=== PATIENT | male | born 1970 | race Caucasian/White ===

== ENCOUNTER → 2018-02-12 09:02 | Outpatient (CLI) | payer MEDICAID, SELFPAY ==
[2018-02-12 09:41] LABS: Anion Gap 10.5 mmol/L (3-11); BUN 24 mg/dL (7-18); CO2 27.5 mmol/L (21.0-32.0); CREATININE 1.13 mg/dL (0.70-1.30); Calcium 8.7 mg/dL (8.5-10.1); Chloride 104 mmol/L (98-107); Glucose 204 mg/dL (70-100); Sodium 142 mmol/L (136-145)
== END ==
PROVIDERS: PCP Nurse Practitioner Family; Visit Provider Nurse Practitioner Family
DX: R94.4 Abnormal results of kidney function studies (principal)
CPT/HCPCS: 36415; 80048

== ENCOUNTER 2019-02-17 10:45 | Outpatient (REF) | payer MEDICAID, SELFPAY ==
[2019-02-17 13:12] LABS: Microalb ug/mg Crea 9.7 ug/mg Cr
== END 2019-02-17 11:05 ==
LOC: LBN 10:45
PROVIDERS: PCP Nurse Practitioner Family; Visit Provider Nurse Practitioner Family
DX: E11.9 Type 2 diabetes mellitus without complications (principal)
CPT/HCPCS: 82043; 82570

== ENCOUNTER 2019-03-17 07:35 | Outpatient (CLI) | payer MEDICAID, SELFPAY ==
[2019-03-17 08:16] LABS: Hemoglobin A1C 8.5 % (4.5-6.2)
[2019-03-17 10:36] LABS: ALT 46 U/L (16-63); AST 20 U/L (15-37); Alkaline Phosphatase 74 U/L (46-116); Anion Gap 9.1 mmol/L (3-11); BUN 16 mg/dL (7-18); Bilirubin, Total 0.8 mg/dL (0.2-1.0); CO2 26.9 mmol/L (21.0-32.0); CREATININE 0.98 mg/dL (0.70-1.30); Calculated LDL 111 mg/dL; Chloride 105 mmol/L (98-107); Cholesterol 184 mg/dL (50-200); Glucose 151 mg/dL (70-100); HDL Cholesterol 48 mg/dL (40-60); Potassium 3.9 mmol/L (3.5-5.1); Sodium 141 mmol/L (136-145); Total Protein 6.7 g/dL (6.4-8.2); Triglyceride 128 mg/dL (30-150)
== END 2019-03-17 07:55 ==
PROVIDERS: PCP Nurse Practitioner Family; Visit Provider Nurse Practitioner Family
DX: I10 Essential (primary) hypertension (principal); E78.5 Hyperlipidemia, unspecified; E11.9 Type 2 diabetes mellitus without complications
CPT/HCPCS: 36415; 80053; 80061; 83036

== ENCOUNTER 2019-08-02 05:03 | Emergency (ER) | payer MEDICAID, SELFPAY ==
[2019-08-02 05:06] VITALS: BP 132/100; PULSE 87; RESP 20; TEMP 36.8; O2SAT 100
--- NOTE | 2019-08-02 05:10 | ED.GENADUL_ITS ---
Discharge Plan Disposition Patient Disposition: HOME Condition: Good Discharge Details Chief Complaint: Nausea/Vomit/Diar Clinical Impression: Viral syndrome, Diarrhea, Dehydration Primary Care Provider: Estefani Graham ED Provider: Toñito Murillo Meds and New Rx's Prescriptions: Continued (DME) lancets [FreeStyle Lancets] 1 EACH misc 1 ea Miscellaneous TID RF: 0 aspirin 81 MG tablet,delayed release (DR/EC) 81 mg PO DAILY RF: 0 (DME) FreeStyle Lite Strips 1 EACH strip 1 ea Miscellaneous TID Qty: 100 RF: 3 glyburide 5 mg tablet 5 mg PO DAILY Qty: 90 RF: 3 lisinopril 10 mg tablet 10 mg PO DAILY Qty: 90 RF: 3 metformin 500 mg tablet extended release 24 hr 1,000 mg PO DAILY Qty: 180 RF: 3 trazodone 50 mg tablet 50 - 100 mg PO HS PRN (Reason: insomnia) Qty: 180 RF: 3 Discharge Instructions Instructions: Dehydration (ED), Acute Diarrhea (ED) Additional Instructions: Try to get some rest. Increase fluid intake to prevent dehydration. [place] diet for the next few days. Follow-up with primary care next week if not better. Return to the ED if you develop bloody diarrhea, abdominal pain, persistent vomiting, high fevers, chest pain, shortness of breath. Stand Alone Forms: Work Release Referrals: Estefani Graham, [facility] [Primary Care Provider] - Medical Decision Making Suspect viral illness with some dehydration given the amount of diarrhea he is describing. It is described as nonbloody. He has a benign abdomen. Cough and congestion is present but he has no shortness of breath or chest pain. Lungs are clear. Saturations are normal. Think he probably just needs some IV fluids and will probably have the weakness and lightheadedness is feeling resolve. Does not sound like true influenza as it was not sudden in onset but more insidious. Will check basic labs. Fingerstick was 199. Laboratory studies look okay. White count is normal. Hemoglobin is normal. Chemistries are good. Glucose confirmed at 193. Liver function normal. Lipase just minimally elevated. He is feeling better with the 2 L of LR. I feel he is safe for discharge home. He needs to increase fluid intake to match his fluid output with his diarrhea. [place] diet. Follow-up with primary care next week if not better. Return to ED for bloody diarrhea, abdominal pain, persistent vomiting, high fever, chest pain, other concerns. Lab Data Lab results reviewed: Yes I reviewed the patient's lab results. HPI General Mode of arrival: ambulatory . Date/Time Provider Initiated Documentation: 08/02/19 05:07 . Limitations to Documentation: no limitations . Information obtained by: patient, RN notes reviewed and old records reviewed . HPI Narrative: Patient presents to ED with chief complaint of weakness and fatigue. Patient reports that 1 week ago he had about 24 hours of severe nausea, vomiting and diarrhea. Following day he felt fine. Over the weekend he started to feel ill again and progressively felt worse with aches, sweats, weakness. He has had some congestion and cough but no chest pain or shortness of breath. Continues to have diarrhea on a regular basis described as watery. Some nausea and dry heaves but not a persistent thing. Able to eat and drink to some degree though seems to trigger diarrhea. Has been trying to go to work but has been unable to because he feels so unwell. Presents this morning as he does not seem to be getting any better. Related Data Home Medications Medication Instructions Recorded Confirmed lancets [FreeStyle Lancets] ea 06/30/16 08/02/19 aspirin 81 mg PO DAILY tab 09/24/16 08/02/19 FreeStyle Lite Strips #100 strip 02/14/18 08/02/19 glyburide 5 mg tablet 5 mg PO DAILY #90 tab-cap 06/07/19 08/02/19 lisinopril 10 mg tablet 10 mg PO DAILY #90 tab-cap 06/07/19 08/02/19 metformin 500 mg tablet,extended 1,000 mg PO DAILY #180 tab-cap 06/07/19 08/02/19 release 24 hr trazodone 50 mg tablet 50 - 100 mg PO HS PRN #180 tab 06/07/19 08/02/19 Previous Rx's Medication Instructions Recorded FreeStyle Lite Strips #100 strip 02/14/18 glyburide 5 mg tablet 5 mg PO DAILY #90 tab-cap 06/07/19 lisinopril 10 mg tablet 10 mg PO DAILY #90 tab-cap 06/07/19 metformin 500 mg tablet,extended 1,000 mg PO DAILY #180 tab-cap 12/04/19 release 24 hr trazodone 50 mg tablet 50 - 100 mg PO HS PRN #180 tab 06/07/19 Allergies Allergy/AdvReac Type Severity Reaction Status Date / Time venlafaxine HCl Allergy Unknown Edema on Unverified 08/02/19 05:08 [From Effexor] Face General Stated Complaint: Nausea/Vomit/Diar MAYKEL: 3 Review of Systems Narrative: As documented in HPI otherwise negative as below. Const: sweats and weakness; no fever, chills Resp: cough; no SOB, pleuritic pain CV: no CP, edema, syncope GI: nausea, diarrhea; no abdominal pain/vomiting Neuro: no headache, numbness, focal weakness, confusion PFSH Medical History Adult BMI > 30 (Chronic) Alcohol use disorder (Chronic) Anxiety (Inactive) Depression (Inactive) Essential hypertension (Chronic 05/10/17) Hepatic steatosis (Chronic) Hypertriglyceridemia (Chronic) Insomnia Opioid use disorder (Chronic) Opiates (heroin & Rx); Methadone MAT until 09/2015; Suboxone MAT until ?? 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 Elevated blood pressure. Otherwise normal vitals and room air pulse ox. Const: WDWN male in NAD. HEENT: NC/AT. Normal facial exam. Dry mucous membranes. Eyes: Normal conjunctiva and sclera. Neck: Supple. Trachea midline. Lungs: Normal respiratory effort. Lungs are clear. Cor: RRR without murmur/gallop. Good radial pulses. GI: Soft. NT/ND. No guarding or rebound. Neuro: A+O x 3. Normal speech, mentation, gait. Cranial nerves II - XII grossly intact. No gross motor or sensory deficit. Ext: No C/C/E. Skin: Warm and dry without rash. Course Vital Signs Vital signs: Vital Signs Temperature 98.2 F 08/02/19 05:06 Pulse 87 08/02/19 05:06 Respiratory Rate 08/02/19 05:06 Blood Pressure 132/100 H 08/02/19 05:06 Pulse Oximetry 100 08/02/19 05:06 Temperature 98.2 F 08/02/19 05:06 Temperature Source Temporal Artery Scan 08/02/19 05:06 Pulse 87 08/02/19 05:06 Respiratory Rate 08/02/19 05:06 Blood Pressure 132/100 H 08/02/19 05:06 Blood Pressure Position Sitting 08/02/19 05:06 Pulse Oximetry 100 08/02/19 05:06 Oxygen Delivery Method Room Air 08/02/19 05:06 Oxygen Flow Rate 0 08/02/19 05:06 Pain Level 6 08/02/19 05:06
[2019-08-02] MEDS: Lactated Ringers 2,000 ML 1000 ML IV (05:39)
[2019-08-02] MEDS: Normal Saline Flush 10 ML SYR IVP (05:39)
[2019-08-02 05:40] LABS: Abs Immature Grans 0.02 k/cumm (0.0-0.09); Absolute Basophil Count 0.05 k/cumm (0.0-0.2); Absolute Eosinophil Count 0.15 k/cumm (0.0-0.7); Absolute Lymphocyte Count 1.16 k/cumm (1.2-3.4); Absolute Monocyte Count 0.71 k/cumm (0.11-0.7); Absolute Neutrophil Count 3.23 k/cumm (1.2-6.7); Basophils % 0.9; Eosinophils % 2.8; HCT 44.9 % (40.0-50.0); HGB 16.1 g/dL (13.5-17.5); Immature Grans % 0.4 %; Lymphocytes % 21.8; Mean Corp. HGB Concentration 35.9 g/dL (32.0-36.0); Mean Corpuscular Hemoglobin 30.1 pg (27.0-33.0); Mean Corpuscular Volume 84.1 fL (80-95); Mean Platelet Volume 10.2 fL (8.0-11.0); Monocytes % 13.3; Neutrophils % 60.8; Platelet Count 148 x1000/uL (130-400); RBC 5.34 m/cumm (4.50-6.00); RBC Distribution Width 12.3 % (11.8-14.1); White Blood Cell Count 5.32 k/cumm (4.4-10.8)
[2019-08-02 05:54] LABS: ALT 37 U/L (16-63); AST 16 U/L (15-37); Alkaline Phosphatase 77 U/L (46-116); Anion Gap 9.4 mmol/L (3-11); BUN 19 mg/dL (7-18); Bilirubin, Total 0.4 mg/dL (0.2-1.0); CO2 27.6 mmol/L (21.0-32.0); CREATININE 1.09 mg/dL (0.70-1.30); Calcium 8.5 mg/dL (8.5-10.1); Chloride 106 mmol/L (98-107); Glucose 193 mg/dL (74-106); Lipase 412 U/L (73-393); Potassium 3.9 mmol/L (3.5-5.1); Sodium 143 mmol/L (136-145); Total Protein 7.1 g/dL (6.4-8.2)
[2019-08-02 07:05] VITALS: BP 132/100; PULSE 87; RESP 20; TEMP 36.8; O2SAT 100
== END 2019-08-02 07:06 | disposition home or self-care (01) ==
PROVIDERS: Emergency Provider Emergency Medicine; PCP Nurse Practitioner Family
DX: B34.9 Viral infection, unspecified (principal); R19.7 Diarrhea, unspecified; E86.0 Dehydration; I10 Essential (primary) hypertension; E11.9 Type 2 diabetes mellitus without complications; Z79.84 Long term (current) use of oral hypoglycemic drugs
CPT/HCPCS: 36416; 80053; 82962; 83690; 96360; 99284; 85025; 99283

== ENCOUNTER 2020-01-22 08:00 | Day surgery (SDC) | payer MEDICAID, SELFPAY ==
--- NOTE | 2020-01-22 06:52 | W.PREOPHP ---
Date of service: 01/22/20 Time of Service: 09:30 Assessment and Plan Assessment and plan (1) Encounter for colorectal cancer screening: Status: Acute Assessment and plan: A\\ 49 year old gentleman seen in the office for his first screening colonoscopy. He has a history of chronic loose stools in the a.m. No abdominal pain melena or hematochezia. No family history of Crohn's or ulcerative colitis. No family history of colon cancer. P\\ Colonoscopy under sedation Risks, benefits and complications have been reviewed. Complications include but are not limited to bleeding, pain, perforation, missed small lesion/polyp, sore throat, aspiration and adverse reaction to the medications. Questions were entertained and answered to their satisfaction and they wished to proceed. No guarantees were given or implied. History of Present Illness Narrative: Mr. Ervin is a [id number] gentleman with a history of diabetes and hypertension who is here today to discuss a screening colonoscopy. This will be his first colonoscopy. He has no family history of colon cancer that he is aware of. He chronically has loose stools every morning. States normally he has 3-4 loose stools upon waking up and then nothing for the rest of the day. He has not noted any worsening of symptoms with different foods. He does not have any associated melena or hematochezia or abdominal pain. There is no family history of Crohn's or ulcerative colitis. He does not have any weight loss. He denies any cardiac history or history of heart attack and strokes. He does chew tobacco about a can a day. He also drinks 2-3 beers a day. He does not have a history of sleep apnea. He is able to walk up a flight of stairs without any difficulty. He does not have a chronic cough. And has no history of obstructive sleep apnea Review of Systems Cardiovascular Cardiovascular: Denies chest pain, Denies chest pain at rest, Denies irregular heart rhythm, Denies dyspnea and Denies dyspnea on exertion Respiratory Respiratory: Reports cough, Denies dyspnea and Denies dyspnea on exertion Gastrointestinal Gastrointestinal: Reports as per HPI Genitourinary Genitourinary: Denies dysuria, Reports urinary incontinence and Denies urinary urgency Endocrine Endocrine: Reports system reviewed and no additional complaints, except as documented Hematologic/Lymphatic Hematologic/Lymphatic: Denies easy bruising and Denies lymphadenopathy [facility] Medical History Adult BMI > 30 (Chronic) Alcohol use disorder (Chronic) Anxiety (Inactive) Depression (Inactive) Essential hypertension (Chronic 05/10/17) Hepatic steatosis (Chronic) Hypertriglyceridemia (Chronic) Insomnia Opioid use disorder (Chronic) Opiates (heroin & Rx); Methadone MAT until 09/2015; Suboxone MAT until ?? Other and unspecified hyperlipidemia (Chronic) Declines statins Tobacco use disorder (Chronic) Chewing tobacco Type 2 diabetes mellitus, without long-term current use of insulin (Chronic) Declines statins Family History Mother Hyperlipidemia Father No problems noted. Sister No problems noted. Sister No problems noted. Brother No problems noted. 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) Pets and animals: Yes Pets and animals: cat(s) Sexually active: Yes Current gender identity: male What is your relationship status?: living with partner Panel score (0-1 are the most socially isolated patients): 1 What type of physical activity do you participate in: none Seatbelt use: always Do you feel safe at home: Yes Do you feel safe in your relationship?: Yes Meds Home Medications and Allergies Home Medications Medication Instructions Recorded Confirmed Type lancets [FreeStyle Lancets] ea 06/30/16 12/29/19 History aspirin 81 mg PO DAILY tab 09/24/16 01/22/20 History glyburide 5 mg tablet 5 mg PO DAILY #90 tab-cap 06/07/19 01/22/20 Rx lisinopril 10 mg tablet 10 mg PO DAILY #90 tab-cap 06/07/19 01/22/20 Rx trazodone 50 mg tablet 50 - 100 mg PO HS PRN #180 tab 06/07/19 01/22/20 Rx metformin 500 mg tablet,extended 500 mg PO DAILY #180 tab-cap 08/17/19 01/22/20 Rx release 24 hr blood sugar diagnostic #200 each 01/17/20 Rx Allergies Allergy/AdvReac Type Severity Reaction Status Date / Time venlafaxine HCl Allergy Unknown Edema on Verified 01/22/20 08:14 [From Effexor] Face Exam Const General: healthy appearing and comfortable Resp Effort & Inspection: normal respiratory effort Auscultation: clear to auscultation bilaterally Cardio Rate: regular rate Rhythm: regular rhythm Heart Sounds: no click, no gallops and no murmurs
--- NOTE | 2020-01-22 06:54 | W.COLOREPORT ---
Date of service: 01/22/20 Time of Service: 09:51 Colonoscopy Report Date of procedure: 01/22/20 Pre-op diagnosis general: Colon Cancer screening Post-op diagnosis procedure note: other (polyps) Procedure: Colonoscopy with polypectomy Surgeon: Leatha Kathleen Anesthesia proc note operative: other (General/ ASA 3/Shena De Jesus CRNA ) Estimated blood loss (mL): 3 Pathology: other (Ascending colon polyp and transverse colon polyp) Complications: None Disposition: same day Indications: 49 year old gentleman seen in the office for his first screening colonoscopy. He has a history of chronic loose stools in the a.m. No abdominal pain melena or hematochezia. No family history of Crohn's or ulcerative colitis. No family history of colon cancer. Risks, benefits and complications have been reviewed. Complications include but are not limited to bleeding, pain, perforation, missed small lesion/polyp, sore throat, aspiration and adverse reaction to the medications. Questions were entertained and answered to their satisfaction and they wished to proceed. No guarantees were given or implied. Prep: Miralax/Dulcolax Procedure Start Time: :51 Procedure End Time: 10:23 Retraction Time: 26 min Findings: One sessile polyp in the proximal ascending colon and one Transverse colon polyp Procedure Description: After informed consent was obtained the patient was taken to the procedure room and placed in a left decubitous position. Monitors were applied and a time out was done. The patients name, date of , procedure, allergies to medications and metal in their body was reviewed. The patient was then sedated. Once sedated and comfortable a rectal exam was done. External exam was normal. Internal exam revealed a normal sphincter tone and no palpable masses. The prostate felt smooth. The scope was then introduced and retro-flexed. No internal hemorrhoids, masses or polyps were identified on retro-flexion. The scope was then advanced to the cecum without difficulty. The ileocecal valve and appendiceal orifice were identified. The prep was adequate. The scope was then slowly retracted over 26 minutes back into the rectum. Polyps were removed with cold forceps in the proximal ascending colon and in the transveerse colon. There were no diverticula noted. The scope was removed and the patient was woken up and taken back to Same day surgery in stable condition. The patient tolerated the procedure well and there were no immediate complications. Follow up: The patient should follow up in 3-5 years unless they develop changes in bowel habits or other new gastrointestinal complaints.
--- NOTE | 2020-01-22 06:56 | W.PM.DSUDISC ---
Discharge Plan Disposition Patient Disposition: HOME Condition: Good Discharge Details Reason For Visit: colon cancer screening Attending Provider: Leatha Kathleen Primary Care Provider: Estefani Graham Home Meds and New Rx's Prescriptions: Continued metformin 500 mg tablet extended release 24 hr 500 mg PO DAILY Qty: 180 RF: 3 (DME) lancets [FreeStyle Lancets] 1 EACH misc 1 ea Miscellaneous TID RF: 0 aspirin 81 MG tablet,delayed release (DR/EC) 81 mg PO DAILY RF: 0 glyburide 5 mg tablet 5 mg PO DAILY Qty: 90 RF: 3 lisinopril 10 mg tablet 10 mg PO DAILY Qty: 90 RF: 3 trazodone 50 mg tablet 50 - 100 mg PO HS PRN (Reason: insomnia) Qty: 180 RF: 3 (DME) Blood Glucose Test Strip See Rx Instructions .ROUTE .MEDSUPPLY Qty: 200 RF: 3 Discharge Instructions Instructions: Colorectal Polyps (GEN) Additional Instructions: Findings: 2 polyps Follow up: 3-5 years Please call if you develop: fevers >101.5 Nausea or Vomiting Abdominal pain that is not transient DAY SURGERY UNIT POST ENDOSCOPY INSTRUCTIONS 1. Because there will be medication in your system for the next 24 hours, you may feel a little sleepy. Your coordination will be affected. Therefore: a. Do not drive or operate dangerous equipment for 24 hours. b. Do not drink alcohol beverages for 24 hours (not even beer). c. Plan to go home and rest for the day. 2. Generally there are no restrictions on your activity after a day or so has gone by, but you may feel a bit fatigued for a few days. 3 After you arrive home you may have a light meal and return to a normal diet as you can tolerate it without feeling sick to your stomach. 4. After surgery, you may feel pain or discomfort. This should be only transient, but if it persists please contact your doctor. 5. If there are any questions regarding the findings of your procedure, please feel free to contact your doctor. 6. If you are unable to contact your doctor with a problem, contact the hospital at [phone]. 7. Continue all your regular medications unless directed otherwise. I understand the above instructions and have no questions. Signature of Patient or Responsible Adult Escort Date/Time Name of Responsible Adult Escort Signature of Nurse Date/Time Activity:: Activity as Tolerated Diet:: As Tolerated Discharge Orders Discharge Orders: Discharge Order (Routine); Ordered 01/22/20 Ordered By: Leatha Kathleen DS: Diagnosis Discharge Diagnosis (1) Encounter for colorectal cancer screening: Status: Acute
[2020-01-22 08:05] VITALS: BP 136/80; PULSE 66; RESP 16; TEMP 36.6; O2SAT 97
[2020-01-22] MEDS: Lactated Ringers 1,000 ML 80 ML IV (08:38)
--- NOTE | 2020-01-22 10:01 | BOWEL_PTH ---
PATIENT: Bowen Ervin LOC: [facility] U#:[id number] AGE/SX: 49/M ROOM: RE01/22/[address]: Leatha Kathleen MD : 1970 BED: DIS: 01/22/2020 SPEC #: [id number] RECD: 01/22/20 12:05 STATUS: MARISSA REQ #: [id number] GAUTAM: 01/22/20 10:[address]: Leatha Kathleen DEPT: Surgical Specimen RECD BY: Genevieve Buchanan ENTERED: 01/22/20 12:06 SP TYPE: Bowel OTHR DR: Estefani Graham APRN Tissues: 1 - BIOPSY BOWEL 2 - BIOPSY BOWEL Procedures: GROSS AND MICRO LEVEL 4 Comments: [id number]
[2020-01-22 10:50] VITALS: BP 130/83; PULSE 59; RESP 16; TEMP 36; O2SAT 99
== END 2020-01-22 11:20 | disposition home or self-care (01) ==
LOC: SUR 08:01
PROVIDERS: PCP Nurse Practitioner Family; Visit Provider Surgery
PROC: 0DJD8ZZ Inspection of Lower Intestinal Tract, Via Natural or Artificial Opening Endoscopic (ICD-10-PCS; CPT 45378; principal; 2020-01-22 09:30)
DX: Z12.11 Encounter for screening for malignant neoplasm of colon (principal); D12.2 Benign neoplasm of ascending colon; D12.3 Benign neoplasm of transverse colon; I10 Essential (primary) hypertension; E11.9 Type 2 diabetes mellitus without complications
CPT/HCPCS: 45380; 88305; NC; J2001; J2704

== ENCOUNTER 2020-02-22 20:54 | Outpatient (REF) | payer MEDICAID, SELFPAY ==
[2020-02-22 18:50] LABS: COMMENT (LAB VIEW ONLY) 206.35 mg/dL; Microalb ug/mg Crea 6.5 ug/mg Cr
== END 2020-02-22 21:14 ==
LOC: LBN 20:54
PROVIDERS: PCP Nurse Practitioner Family; Visit Provider Nurse Practitioner Family
DX: E11.9 Type 2 diabetes mellitus without complications (principal)
CPT/HCPCS: 82043; 82570

== ENCOUNTER 2020-09-12 03:37 | Outpatient (CLI) | payer MEDICAID, SELFPAY ==
[2020-09-12 13:04] LABS: HCT 45.2 % (40.0-50.0); HGB 16.2 g/dL (13.5-17.5); MCH 30.7 pg (27.0-33.0); MCHC 35.8 % (32.0-36.0); MCV 85.6 fL (80-95); MPV 10.1 fL (8.0-11.0); Platelet Count 137 10^3/uL (130-400); RBC 5.28 10^6/uL (4.36-5.78); RDW 11.7 % (11.8-14.1); RDW-SD 36.5 fL; WBC 4.72 10^3/uL (4.4-10.8)
[2020-09-12 14:50] LABS: ALT 123 U/L (16-63); AST 62 U/L (15-37); Albumin 4.1 g/dL (3.4-5.0); Alkaline Phosphatase 104 U/L (46-116); BUN 19 mg/dL (7-18); Bilirubin, Total 0.6 mg/dL (0.2-1.0); Calcium 9.3 mg/dL (8.5-10.1); Calculated LDL 124 mg/dL (<100); Chloride 102 mmol/L (98-107); Cholesterol 203 mg/dL (<200); Glucose 218 mg/dL (74-106); HDL Cholesterol 47 mg/dL (40-60); Sodium 140 mmol/L (136-145); TSH (W/Ref FT4) 0.49 uIU/mL (0.36-3.74); Total Protein 7.4 g/dL (6.4-8.2); Triglyceride 162 mg/dL (<150)
[2020-09-13 10:03] LABS: Hepatitis C Ab w Rflx HCV PCR Negative (Negative)
== END 2020-09-12 03:38 | disposition home or self-care (01) ==
LOC: LBO 03:37
PROVIDERS: PCP Nurse Practitioner Family; Visit Provider Nurse Practitioner Family
DX: R53.83 Other fatigue (principal); E78.5 Hyperlipidemia, unspecified; E11.65 Type 2 diabetes mellitus with hyperglycemia; K76.0 Fatty (change of) liver, not elsewhere classified; Z11.59 Encounter for screening for other viral diseases
CPT/HCPCS: 36415; 80053; 80061; 85027; 86803; 84443

== ENCOUNTER 2021-07-10 09:18 | Emergency (ER) | payer MEDICAID, SELFPAY ==
[2021-07-10] VITALS (25 sets, daily range): BP systolic 128–188; BP diastolic 72–102; PULSE 49–75; RESP 8–18; TEMP 36.7; O2SAT 94–97
--- NOTE | 2021-07-10 09:15 | RT.EKG_ITS ---
APPROVED REPORT Exam: Resting ECG Reason for Exam: Nausea, Back Pain Patient Location: E HR:58 bpm ECG Measurements Heart Rate 58 AXIS KS 170 P 54 QRSd 94 QRS 15 QT 428 T 26 QTc 420 Conclusion Sinus bradycardia...rate< 60. Sinus. No STEMI. I have reviewed and interpreted ECG and agree with software generated interpretation.
--- NOTE | 2021-07-10 09:30 | DI.CT_ITS ---
Exam(s) CT CHEST PE ABD PELVIS W EXAM: CT CHEST PE ABD PELVIS W CLINICAL HISTORY: Chest Pain, Back Pain, Nausea, Vomiting. TECHNIQUE: Imaging Protocol: Axial CT angiography was performed with multi-slice acquisition and mu lti-planar and/or 3D reconstructions. CONTRAST MATERIAL: Intravenous: Omnipaque 350 Contrast volume:100 mL COMPARISON: No exams were available for comparison FINDINGS: CHEST: Tracheobronchial tree: Patent where visualized. Pulmonary parenchyma: No consolidation or dominant measurable mass. No architectural distortion. Pulmonary Arteries: No evidence of filling defect to suggest pulmonary emboli. Mediastinum and Veronica: No dominant adenopathy or fluid collection. The esophagus is unremarkable. Pleura: No effusion or pneumothorax. Heart: The heart is not dilated. No coronary artery calcifications are seen. No pericardial effusion. Aorta: Thoracic aorta non-dilated. No evidence of dissection. Bones: Within normal limits for the patient's age. Soft tissues: Unremarkable. ABDOMEN: Liver: Diffuse decreased attenuation of the liver consistent with fatty liver. The liver measures 20 cm long. No measurable mass. Portal, Superior Mesenteric, and Splenic Veins: Unremarkable. Gallbladder and Biliary Tract: No radiodense calculus or dilation. Pancreas: Normal density, no abnormal calcifications or inflammatory process. Spleen: The spleen measures 15 cm long. Adrenals: There is a 0.7 cm hypodense nodule in the left adrenal gland likely reflecting an adenoma. No follow-up is recommended. The right adrenal gland is unremarkable. Kidneys: Normal size, contour and axis. No radiodense stones or obstructive uropathy. No masses seen. Abdominal Aorta: Abdominal portion non-dilated. Mild atherosclerosis. Bowel: No obstruction or bowel wall thickening. The appendix measures 5 mm in diameter there is some high density material within the appendix. No appendiceal wall thickening or periappendiceal inflamm atory changes are seen to suggest acute appendicitis. Peritoneal Cavity: No ascites, collection or mesenteric inflammatory response. No free air. Lymph Nodes: Within normal limits. Bones: Within normal limits for the patient's age. Degenerative changes seen throughout the lumbar s pine in the hips bilaterally. Soft Tissues: Small fat containing inguinal hernia. Small fat containing umbilical hernia. PELVIS: Bladder: There is diffuse thickening of the wall of the urinary bladder. This may in part be due to underdistention but cystitis cannot be excluded. Reproductive Organs: Unremarkable as visualized. Lymph Nodes: Within normal limits. Bones: Within normal limits. IMPRESSION: 1. No evidence pulmonary embolism, thoracic aortic dissection or aneurysm. 2. No acute pulmonary process. 3. Diffuse thickening of the wall of the urinary bladder. This may be in part due to underdistention . Cystitis cannot be excluded. Clinical correlation is recommended. 4. Hepatosplenomegaly and hepatic steatosis. 5. Results of this exam have been verbally communicated with provider. RADIATION DOSE DELIVERED: 2,002.88mGy.cm Total DLP DATA REPOSITORY: All CT scans at this facility are submitted to the National Radiology Data Registry (NRDR) Dose Index Registry (DIR) with the [employer] [place] [employer] (ACR). RADIATION OPTIMIZATION: All CT scans at this facility use at least one of these dose optimization te chniques: automated exposure control; mA and/or kV adjustment per patient size (includes targeted exa ms where dose is matched to clinical indication); or iterative reconstruction.
--- NOTE | 2021-07-10 09:39 | ED.GENADUL_ITS ---
Discharge Plan Disposition Patient Disposition: HOME Condition: Stable Discharge Details Clinical Impression: COVID-19 Primary Care Provider: Estefani Graham ED Provider: Diandra Salas Home Meds and New Rx's Prescriptions: Continued buprenorphine HCl 2 mg tablet, sublingual 4 mg sublingual DAILY RF: 0 aspirin 81 MG tablet,delayed release (DR/EC) 81 mg PO DAILY RF: 0 glyburide 5 mg tablet 5 mg PO DAILY Qty: 90 RF: 3 lisinopril 10 mg tablet 10 mg PO DAILY Qty: 90 RF: 3 metformin 500 mg tablet extended release 24 hr 500 mg PO DAILY Qty: 180 RF: 3 acetaminophen 500 mg Tablet 1,000 mg PO PRN PRNRF: 0 No Action buprenorphine HCl 8 mg tablet, sublingual 8 mg sublingual DAILY RF: 0 (DME) lancets [FreeStyle Lancets] 1 EACH misc 1 ea Miscellaneous TID RF: 0 trazodone 50 mg tablet 50 - 100 mg PO HS PRN (Reason: insomnia) Qty: 180 RF: 3 (DME) Blood Glucose Test Strip See Rx Instructions .ROUTE .MEDSUPPLY Qty: 200 RF: 3 Discharge Instructions Instructions: COVID-19 (Coronavirus Disease 2019) (ED), COVID-19: Slow the Coronavirus Spread (ED) Additional Instructions: Please continue to quarantine. Follow up with primary care provider in 3-5 days. Return to ED sooner if any worsening or concerns. Increase oral fluids. Take a multivitamin including vitamin C, D3 and zinc. Please consider getting vaccinated 90 days after a negative test. Please take Tylenol with food every 4-6 hours as needed for pain and swelling. Stand Alone Forms: Work Release Referrals: Estefani Graham NP [Primary Care Provider] - 2 weeks Medical Decision Making 50-year-old male presents to the ER with chief complaint of back pain, nausea, vomiting. Patient reports that night before last he woke up at around 11 PM with a sweat, became nauseated and vomited. He then reported some acute onset of back pain. He states that yesterday he felt fine and symptoms returned in the evening once again. Reported nausea back pain chills, headache and diaphoresis did not vomit. Reports loose stools. Upon initial examination he is hypertensive blood pressure 188/102, does have a history of hypertension, type 2 diabetes and hepatic steatosis, history of alcohol use disorder. She does not take aspirin this morning. EKG was reviewed by Isabell Wagoner MD ER attending, no old EKG available for review. Please see her official report. Cardiac work-up ordered including serial troponins. CT chest abdomen rule out PE versus AAA versus cholecystitis. 0958: BP 144/88 CBC shows white blood cell count of 3.32, platelets 108, CMP shows sodium of 140, potassium 3.9, BUN 18 creatinine 1.0 GFR greater than 60 glucose of 279 a slightly low at 1.6 initial troponin within normal limits lipase is elevated at 1532. Urinalysis shows specific gravity greater than 1030, no leukocytes no nitrites. Covid swab is positive. 1205: Patient is requesting to leave prior to his second troponin result. Patient given discharge instructions and quarantine instructions strict return instructions. This text was generated using [employer] system, please disregard any oddities of phrase or misspellings. Lab Data Lab results reviewed: Yes I reviewed the patient's lab results. Lab results narrative: Laboratory Tests Range/Units 07/10/21 07/10/21 07/10/21 09:30 09:50 09:50 WBC (4.4-10.8) 10^3/uL 3.32 L RBC (4.36-5.78) 10^6/uL 5.14 Hgb (13.5-17.5) g/dL 15.4 Hct (40.0-50.0) % 43.8 MCV (80-95) fL 85.2 MCH (27.0-33.0) pg 30.0 MCHC (32.0-36.0) % 35.2 RDW (11.8-14.1) % 11.7 L Plt Count (130-400) 10^3/uL 108 L MPV (8.0-11.0) fL 10.2 Immature Gran % 0.3 Neutrophils % 60.5 Lymphocytes % 20.8 Monocytes % 16.0 Eosinophils % 1.5 Basophils % 0.9 Nucleated RBC % % 0 Absolute Neutrophils (1.2-6.7) 10^3/uL 2.01 Absolute Lymphocytes (1.2-3.4) 10^3/uL 0.69 L Absolute Monocytes (0.1-0.8) 10^3/uL 0.53 Absolute Eosinophils (0.0-0.7) 10^3/uL 0.05 Absolute Basophils (0.0-0.2) 10^3/uL 0.03 Sodium (136-145) mmol/L 140 Potassium (3.5-5.1) mmol/L 3.9 Chloride (98-107) mmol/L 102 Carbon Dioxide (21.0-32.0) mmol/L 28.9 Anion Gap (3-11) mmol/L 9.1 BUN (7-18) mg/dL 18 Creatinine (0.70-1.30) mg/dL 1.0 Estimated GFR/1.73 m2 (mL/min/1.73m2) >= 60.00 Glucose (74-106) mg/dL 270 H Calcium (8.5-10.1) mg/dL 8.8 Magnesium (1.8-2.4) mg/dL 1.6 L Total Bilirubin (0.2-1.0) mg/dL 0.4 AST (15-37) U/L 32 ALT (16-63) U/L 67 H Alkaline Phosphatase (46-116) U/L 92 Troponin I (<or=60) ng/L < 50 Total Protein (6.4-8.2) g/dL 7.5 Albumin (3.4-5.0) g/dL 4.1 Lipase (73-393) U/L 1532 H Urine Color (Yellow) Urine Clarity (Clear) Urine pH (5-8) Ur Specific [place] (1.005-1.025) Urine Protein (Negative) mg/dL Urine Ketones (Negative) mg/dL Urine Blood (Negative) Urine Nitrite (Negative) Urine Bilirubin (Negative) Urine Urobilinogen (Up TO 0.2) EU/dL Ur Leukocyte Esterase (Negative) Urine Glucose (Negative) mg/dL COVID-19 Source Nasal/Nares SARS-CoV-2 (PCR) (Negative) POSITIVE A* Range/Units 07/10/21 10:03 WBC (4.4-10.8) 10^3/uL RBC (4.36-5.78) 10^6/uL Hgb (13.5-17.5) g/dL Hct (40.0-50.0) % MCV (80-95) fL MCH (27.0-33.0) pg MCHC (32.0-36.0) % RDW (11.8-14.1) % Plt Count (130-400) 10^3/uL MPV (8.0-11.0) fL Immature Gran % Neutrophils % Lymphocytes % Monocytes % Eosinophils % Basophils % Nucleated RBC % % Absolute Neutrophils (1.2-6.7) 10^3/uL Absolute Lymphocytes (1.2-3.4) 10^3/uL Absolute Monocytes (0.1-0.8) 10^3/uL Absolute Eosinophils (0.0-0.7) 10^3/uL Absolute Basophils (0.0-0.2) 10^3/uL Sodium (136-145) mmol/L Potassium (3.5-5.1) mmol/L Chloride (98-107) mmol/L Carbon Dioxide (21.0-32.0) mmol/L Anion Gap (3-11) mmol/L BUN (7-18) mg/dL Creatinine (0.70-1.30) mg/dL Estimated GFR/1.73 m2 (mL/min/1.73m2) Glucose (74-106) mg/dL Calcium (8.5-10.1) mg/dL Magnesium (1.8-2.4) mg/dL Total Bilirubin (0.2-1.0) mg/dL AST (15-37) U/L ALT (16-63) U/L Alkaline Phosphatase (46-116) U/L Troponin I (<or=60) ng/L Total Protein (6.4-8.2) g/dL Albumin (3.4-5.0) g/dL Lipase (73-393) U/L Urine Color (Yellow) Dark Yellow Urine Clarity (Clear) Clear Urine pH (5-8) 5.5 Ur Specific [place] (1.005-1.025) >= 1.030 H Urine Protein (Negative) mg/dL Negative Urine Ketones (Negative) mg/dL Negative Urine Blood (Negative) Negative Urine Nitrite (Negative) Negative Urine Bilirubin (Negative) Negative Urine Urobilinogen (Up TO 0.2) EU/dL 0.2 Ur Leukocyte Esterase (Negative) Negative Urine Glucose (Negative) mg/dL 100 COVID-19 Source SARS-CoV-2 (PCR) (Negative) HPI General Mode of arrival: ambulatory . Date/Time Provider Initiated Documentation: 07/10/21 09:21 . Limitations to Documentation: no limitations . Information obtained by: patient, RN notes reviewed and old records reviewed . HPI Narrative: 50-year-old male presents to the ER with chief complaint of back pain, nausea, vomiting. Patient reports that night before last he woke up at around 11 PM with a sweat, became nauseated and vomited. He then reported some acute onset of back pain. He states that yesterday he felt fine and symptoms returned in the evening once again. Reported nausea back pain chills, headache and diaphoresis did not vomit. Reports loose stools. Upon initial examination he is hypertensive blood pressure 188/102, does have a history of hypertension, type 2 diabetes and hepatic steatosis, history of alcohol use disorder. She does not take aspirin this morning. Related Data Home Medications Medication Instructions Recorded Confirmed lancets [FreeStyle Lancets] ea 06/30/16 04/11/21 aspirin 81 mg PO DAILY tab 09/24/16 07/10/21 trazodone 50 mg tablet 50 - 100 mg PO HS PRN #180 tab 06/07/19 07/10/21 blood sugar diagnostic #200 each 07/24/20 04/11/21 glyburide 5 mg tablet 5 mg PO DAILY #90 tab-cap 09/27/20 07/10/21 lisinopril 10 mg tablet 10 mg PO DAILY #90 tab-cap 09/27/20 07/10/21 metformin 500 mg tablet,extended 500 mg PO DAILY #180 tab-cap 01/23/21 07/10/21 release 24 hr buprenorphine HCl 2 mg sublingual 4 mg SUBLINGUAL DAILY 04/11/21 07/10/21 tablet buprenorphine HCl 8 mg sublingual 8 mg SUBLINGUAL DAILY 04/11/21 04/11/21 tablet acetaminophen 1,000 mg PO PRN PRN 07/10/21 07/10/21 Previous Rx's Medication Instructions Recorded trazodone 50 mg tablet 50 - 100 mg PO HS PRN #180 tab 06/07/19 blood sugar diagnostic #200 each 07/24/20 glyburide 5 mg tablet 5 mg PO DAILY #90 tab-cap 09/27/20 lisinopril 10 mg tablet 10 mg PO DAILY #90 tab-cap 09/27/20 metformin 500 mg tablet,extended 500 mg PO DAILY #180 tab-cap 01/23/21 release 24 hr Allergies Allergy/AdvReac Type Severity Reaction Status Date / Time venlafaxine HCl Allergy Unknown Edema on Verified 07/10/21 09:34 [From Effexor] Face General Stated Complaint: GenMedical MAYKEL: 3 Review of Systems All systems reviewed & are unremarkable except as noted in HPI and below Constitutional Constitutional: Reports fatigue, Reports headache(s) and Reports night sweats ENT Ears, Nose, Mouth, and Throat: Reports headache(s) Cardiovascular Cardiovascular: Denies dyspnea Respiratory Respiratory: Denies dyspnea Gastrointestinal Gastrointestinal: Reports nausea and Reports vomiting Musculoskeletal Musculoskeletal: Reports back pain Neurologic Neurologic: Reports headache(s) Endocrine Endocrine: Reports fatigue PFSH All Active Problems (Updated 07/10/21 @ 11:58 by Diandra Salas) COVID-19 (Acute) Hepatic steatosis (Chronic) Alcohol use disorder (Chronic) Adult BMI > 30 (Chronic) Essential hypertension (Chronic 05/10/17) Other and unspecified hyperlipidemia (Chronic) Declines statins Hypertriglyceridemia (Chronic) Tobacco use disorder (Chronic) Chewing tobacco Type 2 diabetes mellitus, without long-term current use of insulin (Chronic) Declines statins Opioid use disorder (Chronic) Opiates (heroin & Rx); Methadone MAT until 09/2015; Suboxone MAT until ?? Insomnia (Chronic) Temazepam, Ambien, trazodone, Benadryl, melatonin -- didn't work Medical History Anxiety Depression Insomnia Tubular adenoma of colon Family History Mother Hyperlipidemia Father No problems noted. Sister No problems noted. Sister No problems noted. Brother No problems noted. 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 Appears stated age. Normal body habitus. Head: Normocephalic, no trauma. Eyes: Pupils PERRL, Red reflex noted, EOM's intact. Eyelids symmetrical without lesions, discharge, or swelling. ENT: Bilateral TM's WNL, External ear normal to inspection, no mastoid TTP, swelling, or erythema, Nasal turbinates WNL, no nasal discharge. Normal dentition, Posterior pharynx WNL, no exudate. Chest: RRR, Normal S1, S2, distal pulses intact. Resp: Lungs clear to auscultation bilaterally, no wheezes, rales, or rhonchi. Abdomen: Soft, non-distended, Normoactive bowel sounds all 4 quads. Musculoskeletal: Normal gait, 5/5 strength to all four extremities. Skin: No suspicious rashes or lesions. Capillary refill less than 2 sec. Neurologic: Cranial nerves II-XII intact. Alert and oriented x 3. Motor: No deficits noted. Sensory: Intact bilaterally all 4 extremities. Reflexes: DTR's intact bilaterally.. Hematologic/Lymphatic: No ecchymosis, no lymphadenopathy. Course Vital Signs Vital signs: Vital Signs Temperature 36.7 C 07/10/21 09:22 Pulse 68 07/10/21 09:22 Blood Pressure 188/102 H 07/10/21 09:22 Pulse Oximetry 96 07/10/21 09:22 Temperature 36.7 C 07/10/21 09:22 Temperature Source Temporal Artery Scan 07/10/21 09:22 Pulse 68 07/10/21 09:22 Respiratory Rate 18 07/10/21 09:32 Respiratory Effort Non-Labored 07/10/21 09:32 Respiratory Depth Normal 07/10/21 09:32 Respiratory Pattern Normal 07/10/21 09:32 Blood Pressure 188/102 H 07/10/21 09:22 Blood Pressure Position Sitting 07/10/21 09:22 Pulse Oximetry 96 07/10/21 09:22 Oxygen Delivery Method Room Air 07/10/21 09:22 Oxygen Flow Rate 0 07/10/21 09:22
[2021-07-10 09:43] LABS: Source Nasal/Nares
[2021-07-10] MEDS: Aspirin 81 MG CHEW 324 MG CH (09:48)
[2021-07-10] MEDS: Ondansetron 4 MG/2 ML VIAL IVP (09:52)
[2021-07-10 10:09] LABS: Abs Immature Grans 0.01 10^3/uL (0.0-0.06); Absolute Basophil Count 0.03 10^3/uL (0.0-0.2); Absolute Eosinophil Count 0.05 10^3/uL (0.0-0.7); Absolute Lymphocyte Count 0.69 10^3/uL (1.2-3.4); Absolute Monocyte Count 0.53 10^3/uL (0.1-0.8); Absolute Neutrophil Count 2.01 10^3/uL (1.2-6.7); Basophils % 0.9; Eosinophils % 1.5; HCT 43.8 % (40.0-50.0); HGB 15.4 g/dL (13.5-17.5); Immature Grans % 0.3; Lymphocytes % 20.8; MCHC 35.2 % (32.0-36.0); MCV 85.2 fL (80-95); MPV 10.2 fL (8.0-11.0); Neutrophils % 60.5; Nucleated RBC 0 %; Platelet Count 108 10^3/uL (130-400); RBC 5.14 10^6/uL (4.36-5.78); RDW 11.7 % (11.8-14.1); RDW-SD 36.2 fL; WBC 3.32 10^3/uL (4.4-10.8)
[2021-07-10 10:17] LABS: Bilirubin Negative (Negative); Blood Negative (Negative); Clarity Clear (Clear); Glucose 100 mg/dL (Negative); Ketones Negative (Negative); Leukocyte Esterase Negative (Negative); Nitrite Negative (Negative); Specific Gravity >= 1.030 (1.005-1.025); Urobilinogen 0.2 EU/dL (Up TO 0.2); pH 5.5 (5-8)
[2021-07-10 10:24] LABS: ALT 67 U/L (16-63); AST 32 U/L (15-37); Albumin 4.1 g/dL (3.4-5.0); Alkaline Phosphatase 92 U/L (46-116); Anion Gap 9.1 mmol/L (3-11); BUN 18 mg/dL (7-18); Bilirubin, Total 0.4 mg/dL (0.2-1.0); CO2 28.9 mmol/L (21.0-32.0); Calcium 8.8 mg/dL (8.5-10.1); Chloride 102 mmol/L (98-107); Glucose 270 mg/dL (74-106); Magnesium 1.6 mg/dL (1.8-2.4); Potassium 3.9 mmol/L (3.5-5.1); Sodium 140 mmol/L (136-145); Total Protein 7.5 g/dL (6.4-8.2); Troponin I < 50 ng/L (<or=60)
[2021-07-10 10:29] LABS: Lipase 1532 U/L (73-393)
[2021-07-10 10:32] LABS: COVID-19 PCR POSITIVE (Negative)
[2021-07-10] MEDS: Omnipaque 350 MG/ML 100 ML BTL IJ (10:59)
--- NOTE | 2021-07-10 11:09 | NUTRITION ---
Pt return from radiology, monitors cont., pt denies pain or needs at this time.
[2021-07-10 13:54] LABS: Troponin I < 50 ng/L (<or=60)
== END 2021-07-10 12:13 | disposition home or self-care (01) ==
PROVIDERS: Emergency Provider Registered Nurse Emergency; PCP Nurse Practitioner Family
DX: U07.1 COVID-19 (principal); M54.9 Dorsalgia, unspecified; R11.2 Nausea with vomiting, unspecified; R07.9 Chest pain, unspecified
CPT/HCPCS: 36415; 71275; 74177; 80053; 83690; 87635; 93005; 96374; 99285; 81003; 83735; 84484; 85025; 93010; 99284; J2405; J3490

== ENCOUNTER 2021-07-15 01:44 | Outpatient (CLI) | payer MEDICAID, SELFPAY ==
[2021-07-15 08:23] VITALS: BP 144/78; PULSE 62; RESP 16; TEMP 37.3; O2SAT 96
[2021-07-15 09:06] VITALS: BP 133/76; TEMP 36.9; O2SAT 16
[2021-07-15 09:31] VITALS: BP 122/73; PULSE 48; RESP 16; TEMP 37.3; O2SAT 96
[2021-07-15 10:30] VITALS: BP 123/78; PULSE 48; RESP 20; TEMP 37.6; O2SAT 94
== END 2021-07-15 01:45 | disposition home or self-care (01) ==
LOC: INF 01:44
PROVIDERS: PCP Nurse Practitioner Family; Visit Provider Family Medicine
DX: U07.1 COVID-19 (principal)
CPT/HCPCS: 96365; Q0047

== ENCOUNTER 2021-09-10 03:43 | Outpatient (CLI) | payer MEDICAID, SELFPAY ==
[2021-09-10 08:14] LABS: Abs Immature Grans 0.02 10^3/uL (0.0-0.06); Absolute Basophil Count 0.05 10^3/uL (0.0-0.2); Absolute Eosinophil Count 0.19 10^3/uL (0.0-0.7); Absolute Monocyte Count 0.57 10^3/uL (0.1-0.8); Basophils % 0.8; Eosinophils % 3.1; HCT 45.7 % (40.0-50.0); HGB 15.8 g/dL (13.5-17.5); Immature Grans % 0.3; Lymphocytes % 24.5; MCH 29.8 pg (27.0-33.0); MCHC 34.6 % (32.0-36.0); MCV 86.1 fL (80-95); MPV 9.7 fL (8.0-11.0); Monocytes % 9.3; Nucleated RBC 0 %; Platelet Count 144 10^3/uL (130-400); RBC 5.31 10^6/uL (4.36-5.78); RDW 11.9 % (11.8-14.1); RDW-SD 37.7 fL; WBC 6.13 10^3/uL (4.4-10.8)
[2021-09-10 11:32] LABS: ALT 47 U/L (16-63); AST 22 U/L (15-37); Albumin 4.4 g/dL (3.4-5.0); Alkaline Phosphatase 79 U/L (46-116); Anion Gap 11.5 mmol/L (3-11); BUN 15 mg/dL (7-18); CO2 26.5 mmol/L (21.0-32.0); Calcium 8.9 mg/dL (8.5-10.1); Chloride 105 mmol/L (98-107); GGT 46 U/L (15-85); Glucose 183 mg/dL (74-106); Potassium 3.9 mmol/L (3.5-5.1); Sodium 143 mmol/L (136-145); Total Protein 7.3 g/dL (6.4-8.2)
[2021-09-11 09:25] LABS: Hepatitis B Surface Ag Negative (Negative)
[2021-09-11 09:48] LABS: HIV-1/2 Ag & Ab Screen Negative (Negative)
[2021-09-11 10:09] LABS: Hep B Core Antibody Negative (Negative)
[2021-09-11 10:12] LABS: Hep A Total Ab w Rflx IgM Negative (Negative)
[2021-09-11 10:24] LABS: Hepatitis C Ab w Rflx HCV PCR Negative (Negative)
[2021-09-11 11:30] LABS: HCV RNA Qualitative Undetected (Undetected)
[2021-09-11 23:39] LABS: HIV-1 RNA Qualitative, P Undetected (Undetected)
[2021-09-12 22:30] LABS: HCV Genotype Undetected (Undetected)
== END 2021-09-10 03:44 | disposition home or self-care (01) ==
LOC: LBO 03:43
PROVIDERS: PCP Nurse Practitioner Family; Visit Provider Nurse Practitioner Gerontology
DX: F11.20 Opioid dependence, uncomplicated (principal)
CPT/HCPCS: 36415; 80053; 86704; 86709; 86803; 87340; 87389; 87522; 87535; 82977; 85025; 87521

== ENCOUNTER 2021-10-24 01:48 | Outpatient (CLI) | payer MEDICAID, SELFPAY ==
[2021-10-24 09:38] LABS: Calculated LDL 103 mg/dL (<100); Cholesterol 173 mg/dL (<200); HDL Cholesterol 55 mg/dL (40-60); Triglyceride 77 mg/dL (<150)
[2021-10-24 09:51] LABS: COMMENT (LAB VIEW ONLY) 382.14 mg/dL; Microalb ug/mg Crea 5.6 ug/mg Cr
== END 2021-10-24 01:49 | disposition home or self-care (01) ==
LOC: LBO 01:48
PROVIDERS: PCP Nurse Practitioner Family; Visit Provider Nurse Practitioner Adult Health
DX: E78.5 Hyperlipidemia, unspecified (principal); E11.9 Type 2 diabetes mellitus without complications
CPT/HCPCS: 36415; 80061; 82043; 82570

== ENCOUNTER 2022-07-31 01:03 | Outpatient (CLI) | payer MEDICAID, SELFPAY ==
[2022-07-31 12:21] LABS: Abs Immature Grans 0.02 10^3/uL (0.0-0.06); Absolute Basophil Count 0.05 10^3/uL (0.0-0.2); Absolute Eosinophil Count 0.16 10^3/uL (0.0-0.7); Absolute Lymphocyte Count 1.59 10^3/uL (1.2-3.4); Absolute Monocyte Count 0.59 10^3/uL (0.1-0.8); Absolute Neutrophil Count 2.38 10^3/uL (1.2-6.7); Eosinophils % 3.3; HCT 43.8 % (40.0-50.0); HGB 15.2 g/dL (13.5-17.5); Immature Grans % 0.4; Lymphocytes % 33.2; MCH 30.3 pg (27.0-33.0); MCHC 34.7 % (32.0-36.0); MCV 87 fL (80-95); MPV 10.4 fL (8.0-11.0); Monocytes % 12.3; Neutrophils % 49.8; Platelet Count 140 10^3/uL (130-400); RBC 5.01 10^6/uL (4.36-5.78); RDW 12.1 % (11.8-14.1); RDW-SD 38.9 fL; WBC 4.79 10^3/uL (4.4-10.8)
[2022-07-31 12:32] LABS: ALT 53 U/L (16-63); AST 33 U/L (15-37); Albumin 4.1 g/dL (3.4-5.0); Alkaline Phosphatase 136 U/L (46-116); Anion Gap 6.2 mmol/L (3-11); BUN 13 mg/dL (7-18); Bilirubin, Total 0.7 mg/dL (0.2-1.0); CO2 29.8 mmol/L (21.0-32.0); Calcium 9.5 mg/dL (8.5-10.1); Calculated LDL 116 mg/dL (<100); Chloride 101 mmol/L (98-107); Cholesterol 192 mg/dL (<200); Estimated GFR 90.56 (mL/min/1.73m2); Glucose 300 mg/dL (74-106); HDL Cholesterol 48 mg/dL (40-60); Potassium 4.1 mmol/L (3.5-5.1); Sodium 137 mmol/L (136-145); Total Protein 7.2 g/dL (6.4-8.2); Triglyceride 143 mg/dL (<150)
[2022-07-31 12:34] LABS: Hemoglobin A1C 8.3 % (<5.7)
== END 2022-07-31 01:04 | disposition home or self-care (01) ==
LOC: LOS 01:03
PROVIDERS: PCP Nurse Practitioner Family; Visit Provider Nurse Practitioner Family
DX: I10 Essential (primary) hypertension (principal); E78.5 Hyperlipidemia, unspecified; E11.9 Type 2 diabetes mellitus without complications; K76.0 Fatty (change of) liver, not elsewhere classified
CPT/HCPCS: 36415; 80053; 80061; 83036; 85025

== ENCOUNTER 2025-04-03 04:49 | Outpatient (CLI) | payer MEDICAID, SELFPAY ==
[2025-04-04 18:34] LABS: PSA, Diagnostic 1.7 ng/mL (<=3.5)
== END 2025-04-03 04:50 ==
LOC: LBO 04-04 04:49
PROVIDERS: PCP Physician Assistant; Visit Provider Nurse Practitioner Gerontology
DX: R97.20 Elevated prostate specific antigen [PSA] (principal)
CPT/HCPCS: 36415; 84153